=== PATIENT | male | born 1970 | race Caucasian/White ===

== ENCOUNTER → 2022-04-26 10:43 | Outpatient (CLI) | payer OTHER, SELFPAY ==
[2022-04-26 20:15] LABS: Add Manual Diff / Slide Review NO; Basophils Absolute Auto 0 /uL (0-100); Basophils Percent Auto 0.5 % (0-2); Eosinophils Absolute Auto 300 /uL (0-450); Eosinophils Percent Auto 5.5 % (2-4); Hematocrit 47.2 % (41-53); Hemoglobin 16.4 g/dL (13.5-17.5); Lymphocytes Absolute Auto 2100 /uL (1100-4500); Lymphocytes Percent Auto 36.4 % (25-40); Mean Corpuscular HGB Conc 34.8 % (30-36); Mean Corpuscular Volume 91.8 fL (80-100); Monocytes Absolute Auto 700 /uL (0-900); Monocytes Percent Auto 12.5 % (3-14); Neutrophils Absolute Auto 2600 /uL (1500-7000); Neutrophils Percent Auto 45.1 % (50-75); Platelet Count 276 X10^3/uL (150-400); Red Blood Cell Count 5.14 X10^6/uL (4.5-5.9); Red Cell Distribution Width 13.1 % (11.6-14.8); White Blood Cell Count 5.7 X10^3/uL (4.5-11.0)
[2022-04-26 20:24] LABS: BUN Creatinine Ratio 15.9 (6-22); Blood Urea Nitrogen 13 mg/dL (9-20); Calcium 9.2 mg/dL (8.4-10.2); Carbon Dioxide 26 mmol/L (22-32); Chloride 100 mmol/L (98-107); Cholesterol 189 mg/dL (140-199); Estimated Glomerular Filt Rate > 60 mL/min (>60); Glucose 96 mg/dL (70-100); HDL Cholesterol 58 mg/dL (40-60); HEMOLYSIS < 15 (0-50); LDL Cholesterol Calculated 110 mg/dL (<100); Potassium 4.4 mmol/L (3.4-5.1); Sodium 136 mmol/L (137-145); Triglycerides 105 mg/dL (35-150)
[2022-04-26 20:57] LABS: Prostate Specific Antigen Scrn 1.98 ng/mL (0.1-4.0)
== END ==
PROVIDERS: PCP Family Medicine; Visit Provider Family Medicine
DX: Z12.5 Encounter for screening for malignant neoplasm of prostate (principal); Z13.1 Encounter for screening for diabetes mellitus; Z13.220 Encounter for screening for lipoid disorders; Z13.6 Encounter for screening for cardiovascular disorders
CPT/HCPCS: 80048; 80061; 85025; G0103

== ENCOUNTER 2022-07-13 12:07 | Day surgery (SDC) | payer OTHER, SELFPAY ==
--- NOTE | 2022-07-13 | PATH_ITS ---
[facility] Accession Number: [id number] No. of containers..02 Tissue . 01 Material submitted: . PART A: rectum - RECTUM POLYP X2 PART B: colon - DESCENDING COLON POLYP . 01 Diagnosis: A. Rectal Polyps: Tubular adenoma x1. Hyperplastic polyp x1. . B. Descending Colon Polyp: Tubular adenoma. MRV 07/16/2022 1258 Local . 01 Electronically signed: . Aj Carcamo MD, PhD, Pathologist NPI- [id number] . 01 Gross description: . Part A: RECTUM POLYP X2: Received in formalin are 4 fragment(s) of eduardo, soft tissue measuring 0.6 x 0.3 x 0.3 cm to 0.1 x 0.1 x 0.1 cm submitted entirely in 1 cassette(s) Part B: DESCENDING COLON POLYP: Received in formalin is 1 fragment(s) of eduardo, soft tissue measuring 0.7 x 0.3 x 0.2 cm submitted entirely in 1 cassette(s) /CPE 07/14/2022 0705 Local . 01 Pathologist provided ICD-10: D12.8, D12.4 . 01 CPT . 184109, [id number] Specimen Comment: A courtesy copy of this report has been sent to [phone] Performed at: 01 [facility] [address] [place] [address], [place], [place] [id number] MD Jairo Chin MD Phone: [phone]
[2022-07-13 12:41] VITALS: BMI 29.9
[2022-07-13 12:47] VITALS: BP 127/87; PULSE 82; RESP 16; TEMP 36.7; O2SAT 98
[2022-07-13] MEDS: LACTATED RINGERS 1,000 ML 200 ML IV (12:56)
--- NOTE | 2022-07-13 14:02 | PM.HP.1 ---
History of Present Illness History of Present Illness Date Patient Seen: 07/13/22 Time Patient Seen: 14:02 Chief complaint: SDC Narrative: The patient presents for colorectal screening. They have never had any previous examination for such. No personal or family history of colon cancer. On further history denies any recent gastrointestinal symptoms. No nausea, vomiting, abdominal pain, loss of appetite, unexplained weight loss, change in bowel habits, or blood per rectum. Patient History Medical History (Updated 04/25/22 @ 19:49 by Kaylee Xiao) Chicken pox (~1979) Surgical History (Updated 04/25/22 @ 19:49 by Kaylee Xiao) History of removal of skin mole Family & Social History Family History (Updated 04/25/22 @ 19:50 by Kaylee Xiao) Father Skin cancer Mother Breast cancer Grandfather Cancer Grandmother Cancer Social History: household members spouse Tobacco & Substance use: Tobacco type cigarettes Smoking Status Former smoker alcohol intake frequency a few times a week Meds Home Medications and Allergies Home Medications Medication Instructions Recorded Confirmed Type lisinopril 10 mg tablet 10 mg PO DAILY #90 tabs 03/31/22 07/13/22 Rx tadalafil 20 mg tablet (Cialis) 10 mg PO DAILY PRN sexual activity 03/31/22 07/13/22 Rx #30 tabs Allergies Allergy/AdvReac Type Severity Reaction Status Date / Time No Known Drug Allergies Allergy Verified 03/31/22 11:05 Exam Vital Signs (past 8 hours): - 07/13/22 12:47 Temperature 98.1 F Pulse Rate 82 Respiratory Rate 16 Blood Pressure 127/87 Pulse Oximetry 98 Oxygen Delivery Method Room Air Oxygen Delivery Method Room Air Narrative Exam Narrative: General adult man alert oriented no acute distress Abdomen soft nontender nondistended Assessment & Plan Assessment & Plan narrative: The patient requires colorectal screening and colonoscopy is recommended. Technical details were discussed. Risks, benefits, alternatives explained. Risks including but not limited to myocardial infarction, aspiration, bleeding, pain, missed lesion, incomplete examination, need for further radiographic studies, colonic perforation, and need for major abdominal surgery were discussed. All questions were answered to their satisfaction, and they are in agreement with this plan. Time Spent With Patient Critical Care time: I spent a total of [] minutes of critical care time on this patient's care today; this time is exclusive of procedural time.
[2022-07-13 14:30] VITALS: BP 99/69; PULSE 71; RESP 9; TEMP 36.4; O2SAT 94
--- NOTE | 2022-07-13 14:30 | PM.OP.COLON ---
Operative Date/Time/Diagnoses Date of procedure: 07/13/22 Time of procedure: 14:30 Pre-op diagnosis: Colorectal screening Post-op diagnosis: other (Colonic polyps x4) Procedure & Clinicians Study performed: Colonoscopy Same procedure as scheduled: Yes Indications: Colorectal screening Surgeon: Wil Euceda Procedure Notes Procedure in detail: The history and physical was performed/updated and the patient is ASA class is 2. The procedure was discussed in detail with the patient. Potential risks complications including infection, bleeding, missed diagnosis, perforation, need for surgery, and were explained. Their questions were answered and informed consent was obtained. Patient was brought to the procedure room and placed standard monitoring equipment. The patient's vital signs were monitored continuously throughout the entire procedure. Prior to starting time-out was performed. The patient was placed in the left lateral recumbent position. Procedural sedation was administered by anesthesia. Examination began with a thorough inspection of the perianal area there was no evidence of fissures, fistulae, external hemorrhoids or cutaneous malignancy. The colonoscopy scope was then placed into the anal canal and was advanced to the cecum, which was identified by the ileocecal valve, the appendiceal orifice and the confluence of the taenia. The scope was then slowly withdrawn examining colon thoroughly in all directions, irrigating it of any residual stool. Within the descending colon there was a 5 mm polyp removed with biopsy forceps. Within the rectum there were a total of 3 polyps ranging in size from 5 mm to 15 mm which were removed with cold snare. The patient tolerated the procedure well. They will be discharged once criteria are met. The prep was of good/excellent quality. The withdrawl time was 10 minutes. Specimen(s): other (Rectal and descending colonic polyps) Impression: Colonic polyps x4 Post-procedure Recommendations: High fiber diet Plan for aftercare: Follow-up is dependent on pathology findings Disposition: same day surgery
[2022-07-13 14:33] VITALS: BP 107/75; PULSE 83; RESP 22; O2SAT 95
[2022-07-13 14:38] VITALS: BP 119/81; PULSE 72; RESP 16; TEMP 36.7; O2SAT 95
== END 2022-07-13 13:52 | disposition home or self-care (01) ==
PROVIDERS: PCP Family Medicine; Referring Provider Surgery; Visit Provider Surgery
PROC: 0DJD8ZZ Inspection of Lower Intestinal Tract, Via Natural or Artificial Opening Endoscopic (ICD-10-PCS; CPT 45378; principal; 2022-07-13 13:30)
DX: Z12.11 Encounter for screening for malignant neoplasm of colon (principal); D12.8 Benign neoplasm of rectum; D12.4 Benign neoplasm of descending colon
CPT/HCPCS: 45385; 45380; J2250; J2704; J3010

== ENCOUNTER → 2023-08-02 09:37 | Outpatient (CLI) | payer OTHER, SELFPAY ==
[2023-08-02 19:54] LABS: Add Manual Diff / Slide Review NO; Basophils Absolute Auto 0 /uL (0-100); Basophils Percent Auto 0.3 % (0-2); Eosinophils Absolute Auto 400 /uL (0-450); Eosinophils Percent Auto 7.2 % (2-4); Hematocrit 48.3 % (41-53); Hemoglobin 17.2 g/dL (13.5-17.5); Lymphocytes Absolute Auto 1900 /uL (1100-4500); Lymphocytes Percent Auto 35.7 % (25-40); Mean Corpuscular HGB Conc 35.6 % (30-36); Mean Corpuscular Hemoglobin 33.1 PG (26-34); Mean Corpuscular Volume 93.1 fL (80-100); Monocytes Absolute Auto 600 /uL (0-900); Monocytes Percent Auto 11.2 % (3-14); Neutrophils Absolute Auto 2500 /uL (1500-7000); Neutrophils Percent Auto 45.6 % (50-75); Platelet Count 257 X10^3/uL (150-400); White Blood Cell Count 5.4 X10^3/uL (4.5-11.0)
[2023-08-02 19:56] LABS: BUN Creatinine Ratio 16.7 (6-22); Blood Urea Nitrogen 16 mg/dL (9-20); Calcium 9.7 mg/dL (8.4-10.2); Carbon Dioxide 27 mmol/L (22-32); Chloride 106 mmol/L (98-107); Cholesterol 188 mg/dL (140-199); Estimated Glomerular Filt Rate > 60 mL/min (>60); Glucose 100 mg/dL (70-100); HDL Cholesterol 56 mg/dL (40-60); HEMOLYSIS < 15 (0-50); LDL Cholesterol Calculated 110 mg/dL (<100); Potassium 4.6 mmol/L (3.4-5.1); Sodium 141 mmol/L (137-145); Triglycerides 110 mg/dL (35-150)
[2023-08-02 20:21] LABS: Prostate Specific Antigen Scrn 0.937 ng/mL (0.1-4.0)
== END ==
PROVIDERS: PCP Family Medicine; Visit Provider Family Medicine
DX: N40.0 Benign prostatic hyperplasia without lower urinary tract symptoms (principal); E78.2 Mixed hyperlipidemia; N52.9 Male erectile dysfunction, unspecified; I10 Essential (primary) hypertension; Z12.5 Encounter for screening for malignant neoplasm of prostate
CPT/HCPCS: 80048; 80061; 85025; G0103